=== PATIENT | female | born 1970 | race Caucasian/White ===

== ENCOUNTER 2021-07-25 14:34 | Emergency (ER) | payer OTHER ==
[~2021-07-25 14:34] MED LIST: ASPIRIN CHEWABL81 MG PO; NITROSTAT 0.40.4 MG SL; OMNICEF 300 MG300 MG PO; PROTONIX40 MG PO; ZOFRAN4 MG PO
== END 2021-07-25 19:34 | disposition left against medical advice (07) ==
LOC: ER1 14:34
DX: K13.0 Diseases of lips (principal); F17.200 Nicotine dependence, unspecified, uncomplicated; I10 Essential (primary) hypertension
CPT/HCPCS: 99283